=== PATIENT | male | born 1945 | race Caucasian/White ===

== ENCOUNTER 2017-05-19 07:41 | Observation (INO) | payer OTHER ==
[~2017-05-19] VITALS: Ht 182.9 cm; Wt 85.6 kg
[2017-05-19] VITALS (16 sets, daily range): BP systolic 136–167; BP diastolic 7–100; PULSE 40–59; RESP 11–23; Ht 182.9 cm; Wt 85.6 kg
[~2017-05-19 07:41] MED LIST: SOD CHLORIDE 0.9% 1,000 ML IV SCH
[2017-05-19] MEDS ORDERED: ATOR40TA68 PO (09:00)
[2017-05-19] MEDS ORDERED: TICA90TA PO (09:00)
[2017-05-19] MEDS ORDERED: LISI10TA2 PO (09:00)
[2017-05-19] MEDS ORDERED: CARV3.12 PO (09:01)
[2017-05-19] MEDS ORDERED: ASPI81TA3 PO (09:02)
[2017-05-19] MEDS ORDERED: UBID1CAP25 PO (09:03)
[2017-05-19 09:53] LABS: BASOPHILS % 0.4 % (0.0-2.0); EOSINOPHILS # 0.1 10^3/ul (0.0-0.5); EOSINOPHILS % 1.4 % (0.0-7.0); HEMOGLOBIN 15.7 g/dl (14.0-18.0); LYMPHOCYTES # 3.3 10^3/ul (0.8-2.9); LYMPHOCYTES % 38.7 % (15.0-51.0); MEAN CORPUSCULAR HEMOGLOBIN 34.1 pg (29.0-33.0); MEAN CORPUSCULAR HGB CONC 34.1 g/dl (32.0-37.0); MEAN CORPUSCULAR VOLUME 99.8 fl (82.0-101.0); MEAN PLATELET VOLUME 10.1 fl (7.4-10.4); MONOCYTE # 0.6 10^3/ul (0.3-0.9); MONOCYTES % 6.9 % (0.0-11.0); NEUTROPHIL # 4.5 10^3/ul (1.6-7.5); NEUTROPHILS % 52.2 % (39.0-77.0); PLATELET COUNT 195 10^3/UL (140-415); RED BLOOD COUNT 4.61 10^6/ul (4.70-6.10); RED CELL DISTRIBUTION WIDTH 12.4 % (11.5-14.5); WHITE BLOOD COUNT 8.6 10^3/ul (4.8-10.8)
[2017-05-19 10:14] LABS: ALANINE AMINOTRANSFERASE 33 IU/L (13-69); ALBUMIN 4.2 g/dl (3.3-4.9); ALKALINE PHOSPHATASE 111 IU/L (42-121); ANION GAP 12 (8-16); ASPARTATE AMINO TRANSFERASE 20 IU/L (15-46); BILIRUBIN,INDIRECT 0.4 mg/dl (0-1.1); BILIRUBIN,TOTAL 0.4 mg/dl (0.2-1.3); CARBON DIOXIDE 26 mmol/L (21-31); CHLORIDE 110 mmol/L (97-110); CHOL/HDL RATIO 3.3 RATIO; CHOLESTEROL 131 mg/dl (100-200); CREATINE KINASE 116 IU/L (23-200); GLUCOSE 94 mg/dl (70-220); HDL CHOLESTEROL 39 mg/dl (31-75); TRIGLYCERIDES 141 mg/dl (0-149)
[2017-05-19 10:16] LABS: BLOOD UREA NITROGEN 14 mg/dl (7-20); CALCIUM 9.1 mg/dl (8.4-10.2); CREATININE 0.85 mg/dl (0.61-1.24); POTASSIUM 4.2 mmol/L (3.5-5.1); SODIUM 144 mmol/L (135-144)
[2017-05-19 10:27] LABS: CK-MB 1.17 ng/ml (0.0-2.4); TROPONIN-I < 0.012 ng/ml (0.00-0.12)
[2017-05-19 10:31] LABS: INR 0.93; PROTIME 12.5 Sec (11.9-14.9)
[2017-05-19] MEDS ORDERED: IODIXANOL LOCM 100 ML BTL ONE (10:36)
[2017-05-19] MEDS ORDERED: LIDOCAINE 1% (MDV) 20 ML INJ ONE (10:36)
[2017-05-19] MEDS ORDERED: FENTAnyl 50 MCG/ML VIAL ONE (10:37)
[2017-05-19] MEDS ORDERED: MIDAZOLAM 1 MG/ML 2 ML INJ ONE (10:37)
[2017-05-19] MEDS ORDERED: NITROGLYCERIN (IC) 100 MCG/ML INJ ONE (10:47)
[2017-05-19] MEDS ORDERED: VERAPAMIL 5 MG INJ ONE (10:47)
[2017-05-19] MEDS ORDERED: TICAGRELOR 90 MG TABLET ONE (11:22)
[2017-05-19] MEDS ORDERED: ACETAMINOPHEN 325 MG TAB PO PRN (12:00)
[2017-05-19] MEDS ORDERED: morphine 2 MG INJ IV PRN (12:00)
[2017-05-19] MEDS ORDERED: OXYCODONE/ACETAMINOPHEN (5/325) TAB PO PRN ×2 (12:00)
[2017-05-19] MEDS ORDERED: SOD CHLORIDE 0.9% 1,000 ML IV SCH (12:00)
--- NOTE | 2017-05-19 12:04 | OPR ---
Date/Time of Note Date/Time of Note DATE: 05/19/17 TIME: 12:01 Operative Report Procedure Date: May 19, 2017 Preoperative Diagnosis CAD, angina and abnormal stress test showing LCX ischemia. Postoperative Diagnosis same Surgeon see signature line Liquor Merchant n/a Anesthesia Type: moderate sedation Estimated Blood Loss: minimal Transfusion none Specimen none Grafts/Implants none Complications none Procedure Description Ergonomics Consultant: Liam Marie MD Indication: CAD, Angina and abnormal stress test showing LCX ischemia Procure performed: #1 left heart catheterization and selective right and left coronary angiogram. selective SVG and WILLARD angiography. #2 Right femoral angiogram and closure using a perclose device. 3. IVUS of the left main and proximal left circumflex artery. 4. Successful PTCA and stenting of LM coronary artery using a 4.0 x 8 mm Synergy drug-eluting stent. 5. Moderate sedation for more than 75 minutes Findings: 1. Left main: is large l and birfurcates to LAD & LCX. it has 90% ostial stenosis. 2. LAD: is 100 % occluded. WILLARD ---> LAD is patent. 3. Left circumflex artery: is nondominant. it has 50 % stenosis. 4. RCA: is dominant. previous stents into the proximal and mid right coronary artery is widely patent. Stent to the PDA has about 40% in-stent restenosis. 5. WILLARD ---> LAD is patent. 6. SVG ---> OM: Has diffuse disease of about 50%. Review of the old records showed that this graft was a jump graft but currently is only going to a very small distal obtuse marginal which does not appear to be feeling back the rest of the left circumflex system. Procedure in detail: Written informed consent with obtained after risks benefits and alternatives discussed with the patient in detail. risks including but not limited to risk of infection vascular complications, bleeding complications, [place] stroke arrhythmia renal failure at even were discussed with the patient in detail. Patient was brought into the cardiac tin can laborer and placed in supine position. Right and left groin area was prepped and draped in regular sterile fashion and then he was in anesthetized using 1% lidocaine. Right femoral artery was cannulated and using modified seldinger technique a 6 Romansh sheath was placed in the right femoral artery. Right femoral angiogram was performed. JL4 catheter was advanced and engaged into the left main coronary artery and angiographic view was obtained. The JR4 catheter was advanced and engaged right coronary artery angiographic view was obtained. JR4 catheter was used and advanced into the saphenous vein graft and with difficulty into the left internal mammary artery angiographic view was obtained. At this time we decided to perform IVUS and PCI of the left main coronary artery. A JL 4.5 guiding head was advanced to engage the left main coronary artery. BMW wire was used and advanced across the lesion and placed distal LCX. Intravascular ultrasound was used and advanced over the wire. IVUS of proximal left circumflex artery as well as left main coronary artery was done. It appeared to have significant stenosis in the left main as well as ulcerated plaques around the lesion. It was decided to perform PCI of this lesion. I used a 4 x 8 mm noncompliant balloon which was placed across the lesion and predilated the vessel. Then I used a 4 x 8 mm Synergy drug-eluting stent which was placed across the lesion and deployed at 12 jolene. Then balloon of the stent was withdrawn and the stent was postdilated up to 16 jolene. Finally a 5 x 8 mm noncompliant balloon was used and postdilated the stent and up to 16 jolene. Final angiographic view was obtained which showed PA-3 flow no evidence of dissection and no significant residual stenosis at the site of the stent. perclose was successfully deployed. Patient tolerated the procedure well with no complication. Patient was transferred to ICU in stable condition. contrast used: 200 visipaque Conclusions: Successful PTCA stenting of the left main coronary artery from 90% ostial stenosis to no significant residual stenosis using a 4 x 8 Synergy drug- eluting stent. Recommendations: Aggressive medical therapy. aspirin indefinitely dual antiplatlet therapy with ASA 81 and brilinta. ICU care overnight. LIAM MARIE MD MERGED WITH [facility] LIAM MARIE MD May 19, 2017 12:04
[2017-05-19] MEDS ORDERED: ATORVASTATIN 40 MG TAB PO SCH (21:00)
[2017-05-19] MEDS ORDERED: TICAGRELOR 90 MG TABLET PO SCH (21:00)
[2017-05-19] MEDS: TICAGRELOR 90 MG TABLET PO SCH (21:51)
[2017-05-20] VITALS (10 sets, daily range): BP systolic 109–144; BP diastolic 62–101; PULSE 39–55; RESP 14–23
[2017-05-20 05:16] LABS: BASOPHILS % 0.3 % (0.0-2.0); EOSINOPHILS # 0.1 10^3/ul (0.0-0.5); EOSINOPHILS % 1.4 % (0.0-7.0); HEMOGLOBIN 13.2 g/dl (14.0-18.0); LYMPHOCYTES # 3.3 10^3/ul (0.8-2.9); LYMPHOCYTES % 32.9 % (15.0-51.0); MEAN CORPUSCULAR HEMOGLOBIN 34.2 pg (29.0-33.0); MEAN CORPUSCULAR HGB CONC 34.7 g/dl (32.0-37.0); MEAN CORPUSCULAR VOLUME 98.4 fl (82.0-101.0); MEAN PLATELET VOLUME 10.3 fl (7.4-10.4); MONOCYTE # 0.7 10^3/ul (0.3-0.9); MONOCYTES % 6.9 % (0.0-11.0); NEUTROPHIL # 5.9 10^3/ul (1.6-7.5); NEUTROPHILS % 58.3 % (39.0-77.0); PLATELET COUNT 175 10^3/UL (140-415); RED BLOOD COUNT 3.86 10^6/ul (4.70-6.10); RED CELL DISTRIBUTION WIDTH 12.5 % (11.5-14.5); WHITE BLOOD COUNT 10.1 10^3/ul (4.8-10.8)
[2017-05-20 05:53] LABS: ALBUMIN 3.2 g/dl (3.3-4.9); ALBUMIN/GLOBULIN RATIO 1.14; BILIRUBIN,INDIRECT 0.5 mg/dl (0-1.1); BILIRUBIN,TOTAL 0.5 mg/dl (0.2-1.3); CREATININE 0.82 mg/dl (0.61-1.24); MAGNESIUM 1.6 mg/dl (1.7-2.5); POTASSIUM 3.9 mmol/L (3.5-5.1)
[2017-05-20 06:17] LABS: TROPONIN-I 0.032 ng/ml (0.00-0.12)
[2017-05-20 06:27] LABS: CK-MB 0.62 ng/ml (0.0-2.4)
[2017-05-20] MEDS: TICAGRELOR 90 MG TABLET PO SCH (08:48)
[2017-05-20] MEDS ORDERED: LISINOPRIL 10 MG TAB PO SCH (09:00)
[2017-05-20] MEDS ORDERED: ASPIRIN 81 MG TAB PO SCH (09:00)
--- NOTE | 2017-05-20 09:28 | CONS ---
Date/Time of Note Date/Time of Note DATE: 05/20/17 TIME: 09:26 Consult Date/Type/Reason Admit Date/Time May 19, 2017 at 11:56 Initial Consult Date Subjective card f/u S: D/W STAFF rhythm was reviewed. pt with NSR/ sinus aydin no dizziness cp or pressure. No palpitations. No groin pain. Patient was able to walk. Objective: General: no acute distress HEENT: NC/AT. pupils are equal. round. NECK: NO JVD. no stridor. CV: RRR. systolic murmur; no gallop or rubs. PULM: no wheezing or rhonchi. GI: SOFT, NT, ND, no rebound or guarding Extremity: trace B/L LE edema. no clubbing. neuro: awake and alert, OX3. Psych: calm and pleasant rectal: deferred vascular: Right femoral artery with no bleeding hematoma or bruit noted. Objective Vital Signs Date Time Temp Pulse Resp B/P Pulse Ox O2 Delivery O2 Flow Rate FiO2 05/20/17 08:00 40 15 118/70 99 Room Air 05/20/17 07:00 97.8 Intake and Output 05/19/17 05/19/17 05/20/17 15:00 23:00 07:00 Intake Total 825 ml 390 ml 180 ml Output Total 300 ml 1000 ml 300 ml Balance 525 ml -610 ml -120 ml Results/Medications Result Diagram: 05/20/17 0448 05/20/17 0448 Results 24 hrs Laboratory Tests Test 05/19/17 09:30 05/20/17 04:48 White Blood Count 8.6 10.1 Red Blood Count 4.61 L 3.86 L Hemoglobin 15.7 13.2 L Hematocrit 46.0 38.0 L Mean Corpuscular Volume 99.8 98.4 Mean Corpuscular Hemoglobin 34.1 H 34.2 H Mean Corpuscular Hemoglobin Concent 34.1 34.7 Red Cell Distribution Width 12.4 12.5 Platelet Count 195 175 Mean Platelet Volume 10.1 10.3 Neutrophils % 52.2 58.3 Lymphocytes % 38.7 32.9 Monocytes % 6.9 6.9 Eosinophils % 1.4 1.4 Basophils % 0.4 0.3 Nucleated Red Blood Cells % 0.0 0.0 Neutrophils # 4.5 5.9 Lymphocytes # 3.3 H 3.3 H Monocytes # 0.6 0.7 Eosinophils # 0.1 0.1 Basophils # 0.0 0.0 Nucleated Red Blood Cells # 0.0 0.0 Prothrombin Time 12.5 Prothrombin Time Ratio 1.0 INR International Normalized Ratio 0.93 Activated Partial Thromboplast Time 32.0 Sodium Level 144 142 Potassium Level 4.2 3.9 Chloride Level 110 109 Carbon Dioxide Level 26 25 Anion Gap 12 12 Blood Urea Nitrogen 14 14 Creatinine 0.85 0.82 Glucose Level 94 96 Calcium Level 9.1 9.0 Total Bilirubin 0.4 0.5 Direct Bilirubin 0.00 0.00 Indirect Bilirubin 0.4 0.5 Aspartate Amino Transf (AST/SGOT) 20 16 Alanine Aminotransferase (ALT/SGPT) 33 33 Alkaline Phosphatase 111 92 Creatine Kinase 116 65 Creatine Kinase Index 1.0 1.0 Creatinine Kinase MB (Mass) 1.17 0.62 Troponin I < 0.012 0.032 Total Protein 7.0 6.0 #L Albumin 4.2 3.2 #L Globulin 2.80 2.80 Albumin/Globulin Ratio 1.50 1.14 Triglycerides Level 141 Cholesterol Level 131 LDL Cholesterol, Calculated 64 HDL Cholesterol 39 Cholesterol/HDL Ratio 3.3 Magnesium Level 1.6 L Medications Current Medications Ticagrelor (Brilinta) 90 mg BID PO Last administered on 05/20/17 08:48; Admin Dose 90 MG; Start 05/19/17 at 21:00 Acetaminophen (Tylenol Tab) 650 mg Q4H PRN PO NON-CARDIAC PAIN LEVEL 1-3; Start 05/19/17 at 12:00 Oxycodone/ Acetaminophen (Percocet (5/ 325)) 1 tab Q4H PRN PO REPORTED NON- CARDIAC PAIN 4-7; Start 05/19/17 at 12:00 Oxycodone/ Acetaminophen (Percocet (5/ 325)) 2 tab Q4H PRN PO REPORTED NON- CARDIAC PAIN 8-10; Start 05/19/17 at 12:00 Morphine Sulfate (morphine) 1 mg Q1H PRN IV PAIN NOT RELIEVED BY OTHERS; Start 05/19/17 at 12:00 Aspirin (Aspirin) 81 mg DAILY PO Last administered on 05/20/17 08:43; Admin Dose 81 MG; Start 05/20/17 at 09:00 Atorvastatin Calcium (Lipitor) 40 mg QHS PO Last administered on 05/19/17 21: 54; Admin Dose 40 MG; Start 05/19/17 at 21:00 Carvedilol (Coreg) 3.125 mg DAILY PO ; Start 05/19/17 at 12:30 Lisinopril (Zestril) 10 mg DAILY PO Last administered on 05/20/17 08:43; Admin Dose 10 MG; Start 05/20/17 at 09:00 Captopril 25 mg 25 mg Q4H PRN PO sbp>160 Last administered on 05/19/17 15:31; Admin Dose 25 MG; Start 05/19/17 at 15:00 Magnesium Sulfate (Magnesium Sulfate 2 Gm/50 ml) 50 ml @ 25 mls/hr ONCE ONCE IVPB Last administered on 05/20/17 09:25; Admin Dose 25 MLS/HR; Start at 09:30; Stop 05/20/17 at 11:29 Assessment/Plan Chief Complaint/Hosp Course 1. CAD 2. Abnormal STRESS TEST 3. S/P PCI LM 4. HTN 5. sinus aydin but asymptomatic. 6. dyslipidmia. Continue current cardiac care. We will discharge the patient today follow up with me in about 1-2 weeks. THANK YOU LIAM BENOIT Problems: LIAM BENOIT MD May 20, 2017 09:28
[2017-05-20] MEDS ORDERED: MAGNESIUM SULFATE 2 GM/50 ML 50 ML IVPB ONE (09:30)
--- NOTE | 2017-05-22 13:27 | RADRPT ---
Vent Rate: 43 bpm RR Interval: 0 msec ME Interval: 168 msec QRS Duration: 86 msec QT Interval: 464 msec QTC Interval: 392 msec P-R-T [place]: 69 - 66 - 71 degrees Marked sinus bradycardia Abnormal ECG Electronically Signed By: Kiran Madera [id number]
== END 2017-05-20 11:15 | disposition home or self-care (01) ==
LOC: SDS 07:41 → ICU 11:56
PROVIDERS: ADMIT Internal Medicine Interventional Cardiology; ATTEND Internal Medicine Interventional Cardiology
DX: I25.10 Atherosclerotic heart disease of native coronary artery without angina pectoris (principal); R94.39 Abnormal result of other cardiovascular function study; I10 Essential (primary) hypertension; R00.1 Bradycardia, unspecified; E78.5 Hyperlipidemia, unspecified
CPT/HCPCS: 80053; 80061; 82550; 82553; 83735; 84484; 85025; 85610; 85730; 92978; 93005; 93459; C1725; C1760; C1874; C1887; C1894; C9600; G0378; J1644; J2250; J3010; J3475; J7030; Q9967